=== PATIENT | female | born 1975 | race African-American/Black ===

== ENCOUNTER 2025-02-28 | Observation (INO) | payer BC, SELFPAY ==
[2025-02-28 00:06] VITALS: BP 142/90; PULSE 99; RESP 18; TEMP 36.7; O2SAT 99; BMI 25.7
[2025-02-28] MEDS: 0.9 % SODIUM CHLORIDE 1000 ml 1,000 ML IV (01:07)
[2025-02-28] MEDS: droperidoL 2.5 MG/ML inj IV (01:08)
[2025-02-28 01:18] LABS: Basophils Absolute Auto 0.05 K/uL (0.00-0.30); Basophils Percent Auto 0.5 % (0.0-3.0); Eosinophils Absolute Auto 0.01 K/uL (0.00-0.50); Eosinophils Percent Auto 0.1 % (0.0-7.0); Hemoglobin* 14.2 gm/dL (12.0-16.0); Immature Granulocytes Abs Auto 0.03 K/uL (0.00-0.30); Immature Granulocytes Pct Auto 0.3 %; Lymphocytes Absolute Auto 2.93 K/uL (0.90-2.90); Lymphocytes Percent Auto 26.7 % (20-44); Mean Corpuscular HGB Conc 34 gm/dL (32-36); Mean Corpuscular Hemoglobin 31 pg (26-34); Mean Corpuscular Volume 93 fL (80-100); Monocytes Percent Auto 6.5 % (0.0-11.0); Neutrophils Absolute Auto 7.23 K/uL (1.7-7.0); Neutrophils Percent Auto 65.9 % (42.0-72.0); Platelet Count* 393 K/uL (140-440); RDW Coefficient of Variation % 12.7 % (11.5-15.5); Red Blood Count 4.54 m/uL (4.00-5.20); White Blood Count* 10.96 K/uL (4.50-11.00)
[2025-02-28 01:20] LABS: Slide Review Reflex No
[2025-02-28 01:31] LABS: Albumin* 4.6 g/dL (3.3-5.0); Chloride* 103 mmol/L (96-114); Sodium* 135 mmol/L (135-149)
[2025-02-28 01:32] LABS: Potassium* 3.5 mmol/L (3.6-5.1)
[2025-02-28 01:34] LABS: Alanine Aminotransferase* 21 U/L (4-35); Alkaline Phosphatase* 70 U/L (40-150); Anion Gap 14 mEq/L (7-15); Aspartate Amino Transferase* 26 U/L (12-35); Bilirubin Total* 1.4 mg/dL (0.1-1.5); Blood Urea Nitrogen* 11 mg/dL (5-24); Carbon Dioxide* 18 mmol/L (20-32); Creatinine* 0.6 mg/dL (0.5-1.5); Est. Creatinine Clearance* 121.14; Estimated Glomerular Filt Rate 111 ml/min; Lipase* 87 U/L (23-300); Total Protein* 7.9 g/dL (6.0-8.3)
[2025-02-28 01:35] LABS: Calcium* 9.6 mg/dL (8.4-10.6); Glucose* 108 mg/dL (60-115)
--- OUTSIDE RECORDS SUMMARY | 2025-02-28 01:51 | XMS_ITS | Clinical Summary ---
Author Organization [employer] [facility] Address [address] [place] [id number] Care Team Providers Care Assembler Crimper Name Role Phone None Primary Care Provider Unavailabl e Allergies No known active allergies Medications acetaminophen 500 mg tabletIndication s:Abdominal pain, unspecified abdominal location,Vomitin g, unspecified vomiting type, unspecified whether nausea present Take 2 Tablets (1,000 mg) by mouth every 6 hours. Max acetaminophen dose: 4000mg in 24 hrs. 30 Tablet 02/02/20 25 11:26 AM CDT 025 Active prochlorperazine 10 mg tabletIndication s:QT prolongation,Artemio sea and vomiting, unspecified vomiting type Take 1 Tablet (10 mg) by mouth every 8 hours if needed for Nausea/Vomiting . 15 Tablet 025 Active dicyclomine 10 mg capsuleIndicatio ns:Abdominal cramping Take 1 Capsule (10 mg) by mouth every 6 hours if needed (abdominal cramping). 20 Capsule 025 Active prochlorperazine 25 mg suppositoryIndic ations:Nausea and vomiting, unspecified vomiting type Insert 1 Suppository (25 mg) rectally every 12 hours if needed for Nausea/Vomiting . 12 Suppository 025 Active rx ondansetron 4 mg orally disintegrating tablet (ED DC MED)Indications: Nausea and vomiting, unspecified vomiting type Place 1 Tablet (4 mg) on the tongue every 6 hours if needed (nausea/vomitin g). 4 Tablet 025 02/18 Discontinued( *Medication adjustment) ondansetron 4 mg disintegrating tabletIndication s:Nausea and vomiting, unspecified vomiting type Place 1 Tablet (4 mg) on the tongue every 6 hours if needed for Nausea/Vomiting . 10 Tablet 02/02/20 11:26 AM CDT 025 02/18 Discontinued( *Medication adjustment) prochlorperazine 25 mg suppositoryIndic ations:Nausea and vomiting, unspecified vomiting type Insert 1 Suppository (25 mg) rectally every 12 hours if needed for Nausea/Vomiting . 12 Suppository 025 02/18 Discontinued cephalexin 500 mg capsuleIndicatio ns:urinary tract infection Take 1 Capsule (500 mg) by mouth two times daily for 7 days. 14 Capsule 025 02/25 Active Problems No known active problems Encounters Date Type Department Care Team Description 02/22/2025 Telephone [facility] [address] [place] [address] [facility]/2025 Telephone [facility] [address] [place] [address] Letty Nam [facility] ER Follow up 02/18/2025 4:16 PM CDT - 02/18/2025 8:[address] [facility] [address] [place] [address] Malia Schuster PA Nausea and vomiting, unspecified vomiting type (Primary Dx); Abdominal cramping Discharge Disposition: Home Self Care 02/18/2025 2:20 AM CDT - 02/18/2025 5:[address] [facility] [address] [place] [address] Wilma Land MD Nausea and vomiting, unspecified vomiting type (Primary Dx); Abdominal cramping; Cystitis Discharge Disposition: Home Self Care 02/18/2025 Travel 02/16/2025 4:14 PM CDT - 02/16/2025 9:20 PM CDT Emergency [facility] [address] [place] [address] Clarisse Nye PA Nausea and vomiting, unspecified vomiting type (Primary Dx); QT prolongation Discharge Disposition: Home Self Care 02/16/2025 Telephone [facility] [address] [place] [address] Nick Sendyvamsi Chang DO 02/16/2025 Travel 02/01/2025 7:19 PM CDT - 02/01/2025 9:58 PM CDT Emergency [facility] [address] [place] [address] Ce Early PA Abdominal pain, unspecified abdominal location (Primary Dx); Nausea Discharge Disposition: Home Self Care 02/01/2025 6:23 AM CDT - 02/01/2025 11:15 AM CDT Emergency [facility] [address] [place] [address] Tomas Rosenberg MD Mittelsteadt, Diliana Stoimenova, MD Abdominal pain, unspecified abdominal location (Primary Dx); Vomiting, unspecified vomiting type, unspecified whether nausea present Discharge Disposition: Home Self Care 02/01/2025 Travel 01/31/2025 6:37 PM CDT - 01/31/2025 10:02 PM CDT [facility] [address] [place] [address] Selina Tenorio MD Nausea and vomiting, unspecified vomiting type (Primary Dx); Hypokalemia Discharge Disposition: Home Self Care 01/31/2025 5:30 PM CDT Office Visit [facility] [address] [place] [address] Meme Patel NP Emesis 01/31/2025 Travel from Last 3 Months Social History Tobacco Use Types Packs/Day Years Used Date Smoking Tobacco: Never Assessed Interpersonal Safety Answer Date Record ed Are you being hit, kicked, p ushed or yelled at (see row info)? No 02/18/2025 Interpersonal Safety Abuse 12 - 18 Not on file 02/18/2025 Interpersonal Safety Ambulatory Vulnerability No t on file 02/18/2025 Comments No Sex and Gender Information Value Date Recorded Sex Assigned at Female 02/01/2025 9:06 PM CDT Legal Sex Female 5:24 PM CDT Gender Identity Female 02/01/2025 9:06 PM CDT Sexual Orientation Straight 02/01/2025 9: 06 PM CDT Obstetrics History Last Filed Vital Signs Vital Sign Reading Time Taken Comments Blood Pressure 110/58 02/18/2025 8:38 PM CDT Pulse 87 02/18/2025 8:38 PM CDT Temperature 36.8 C (98.2 F) 02/18/2025 4:22 PM CDT Respiratory Rate 14 02/18/2025 4:22 PM CDT Oxygen Saturation 97% 02/18/2025 8:38 PM CDT Inhaled Oxygen Concentration - - Weight 80.2 kg (176 lb 12.9 oz) 02/18/2025 4:20 PM CDT Height 172.7 cm (5' 8) 02/18/2025 4:20 PM CDT Body Mass Index 26.88 02/18/2025 4:20 PM CDT Plan of Treatment Health Maintenance Due Date Last Done Comments Tdap 1988 Depression screening for age 12+ 1989 HIV for age 15-65 1992 BMI (ht and wt on same day) for age 18+ 1995 Hepatitis C screening for ag e 18-79 1995 Hepatitis B series for 19+ ( 1 of 3 - 19+ 3-dose series) 1996 Tetanus booster 1997 Pap test for age 21-65 1998 Colonoscopy through age 75 2022 Lipids for age 45-75 2022 Mammogram for age 45-75 2022 COVID-19 vaccine series ( season) 2024 Influenza Vaccine (Season Ended) 2025 Pneumococcal series for age 6-49 Aged Out No longer eligible based on patient's age to complete this topic Procedures Procedure Name Priority Date/Time Associated Diagnosis Comments AMB CONSULT TO GASTROENTEROLOGY STAT 02/22/2025 8:15 PM CDT Nausea and vomiting, unspecified vomiting type Abdominal cramping ,SERUM QUALITATIVE STAT 02/18/2025 5:10 PM CDT LIPASE STAT 02/18/2025 5:10 PM CDT HEPATIC FUNCTION PANEL STAT 5:10 PM CDT BASIC METABOLIC PANEL STAT 02/18/2025 5:10 PM CDT PLATELET ESTIMATE STAT 02/18/2025 5:0 9 PM CDT RED CELL MORPHOLOGY STAT 02/18/2025 5 :09 PM CDT MANUAL DIFFERENTIAL STAT 02/18/2025 5 :09 PM CDT CBC WITH AUTO DIFFERENTIAL STAT 02/18/2025 5:09 PM CDT CBC WITH AUTO DIFFERENTIAL STAT 02/18/2025 5:09 PM CDT BILIRUBIN DIRECT STAT 02/18/2025 3:36 AM CDT AST (SGOT) STAT 02/18/2025 3:36 AM CDT POTASSIUM STAT 02/18/2025 3:36 AM CDT CK TOTAL STAT 02/18/2025 3:36 AM CDT LIPASE STAT 02/18/2025 3:36 AM CDT RED CELL MORPHOLOGY STAT 02/18/2025 2 :55 AM CDT PLATELET ESTIMATE STAT 02/18/2025 2:5 5 AM CDT MANUAL DIFFERENTIAL STAT 02/18/2025 2 :55 AM CDT CBC WITH AUTO DIFFERENTIAL STAT 02/18/2025 2:55 AM CDT HEPATIC FUNCTION PANEL STAT 2:55 AM CDT BASIC METABOLIC PANEL STAT 02/18/2025 2:55 AM CDT CBC WITH AUTO DIFFERENTIAL STAT 02/18/2025 2:55 AM CDT EKG 12 LEAD STAT 02/18/2025 2:45 AM CDT URINE CULTURE MAYNOR 02/18/2025 2:36 AM CDT URINALYSIS MICROSCOPIC STAT 2:36 AM CDT DRUG SCREEN RAPID URINE INHOUSE STAT 02/18/2025 2:36 AM CDT UA W/ SEDIMENT EXAM REFLEXED PER CRITERIA STAT 02/18/2025 2:36 AM CDT ,SERUM QUALITATIVE STAT 02/16/2025 7:10 PM CDT HEPATIC FUNCTION PANEL STAT 7:10 PM CDT LIPASE STAT 02/16/2025 7:10 PM CDT RED CELL MORPHOLOGY STAT 02/16/2025 5 :18 PM CDT PLATELET ESTIMATE STAT 02/16/2025 5:1 8 PM CDT MANUAL DIFFERENTIAL STAT 02/16/2025 5 :18 PM CDT MAGNESIUM STAT 02/16/2025 5:18 PM CDT CBC WITH AUTO DIFFERENTIAL STAT 02/16/2025 5:18 PM CDT BASIC METABOLIC PANEL STAT 02/16/2025 5:18 PM CDT CBC WITH AUTO DIFFERENTIAL STAT 02/16/2025 5:18 PM CDT EKG 12 LEAD STAT 02/16/2025 5:12 PM CDT XR ABDOMEN 2 VIEW FLAT AND UPRIGHT OR DECUBITUS STAT 02/01/2025 8:16 PM CDT CBC WITH AUTO DIFFERENTIAL STAT 02/01/2025 7:47 PM CDT LACTATE VENOUS Today 02/01/2025 7:47 PM CDT LIPASE STAT 02/01/2025 7:47 PM CDT COMP METABOLIC PANEL STAT 02/01/2025 7:47 PM CDT CBC WITH AUTO DIFFERENTIAL STAT 02/01/2025 7:47 PM CDT LACTATE VENOUS Timed 02/01/2025 9:08 AM CDT CBC WITH AUTO DIFFERENTIAL STAT 02/01/2025 7:06 AM CDT LACTATE VENOUS Today 02/01/2025 7:06 AM CDT LIPASE STAT 02/01/2025 7:06 AM CDT COMP METABOLIC PANEL STAT 02/01/2025 7:06 AM CDT CBC WITH AUTO DIFFERENTIAL STAT 02/01/2025 7:06 AM CDT URINALYSIS MICROSCOPIC STAT 8:30 PM CDT UA W/ SEDIMENT EXAM REFLEXED PER CRITERIA STAT 01/31/2025 8:[address] ABDOMEN PELVIS W STAT 01/31/2025 8 :13 PM CDT LIPASE STAT 01/31/2025 7:17 PM CDT HEPATIC FUNCTION PANEL STAT 7:17 PM CDT BASIC METABOLIC PANEL STAT 01/31/2025 7:17 PM CDT CBC W PLT NO DIFF STAT 01/31/2025 7:1 7 PM CDT from Last 3 Months Results * ,SERUM QUALITATIVE (02/18/2025 5:10 PM CDT) Only the most recent of2 resultswithin the time period is included. ,SERU M Negative Negative 02/18/2025 5:25 PM CDT [facility] Blood BLOOD SPECIMEN / Unknown Butterfly / Unknown 02/18/2025 5:10 PM CDT 02/18/2025 5:13 PM CDT Malia TAYLOR CHEMISTRY Final R esult Performing Organization Address [facility]/ZIP Co de Phone Number [facility] [address] [place] [address] * LIPASE (02/18/2025 5:10 PM CDT) Only the most recent of6 resultswithin the time period is included. Pathologist [facility] [place] LIPASE 51.8 13.0 - 60.0 IU/L 02/18/2025 5:33 PM CDT [facility] Blood BLOOD SPECIMEN / Unknown Butterfly / Unknown 02/18/2025 5:10 PM CDT 02/18/2025 5:13 PM CDT us Malia TAYLOR CHEMISTRY Final R esult Performing Organization Address City/[facility]/ZIP Co de Phone Number [facility] [address] [place], [place] [phone] * (ABNORMAL) HEPATIC FUNCTION PANEL (02/18/2025 5:10 PM CDT) Only the most recent of4 resultswithin the time period is included. Pathologist [facility] [place] ALBUMIN 4.3 4.0 - 4.9 g/dL 02/18/2025 5:33 PM CDT [facility] PROTEIN,TOTAL 6.9 6.0 - 8.0 g/dL 02/18/2025 5:33 PM CDT [facility] BILIRUBIN,TOTAL 1.2 0.0 - 1.2 mg/dL 02/18/2025 5:33 PM CDT [facility] BILIRUBIN,DIRECT 0.5(H) 0.0 - 0.2 mg/dL 02/18/2025 5:33 PM CDT [facility] BILIRUBIN,INDIRE CT 0.7 0.2 - 0.8 mg/dL 02/18/2025 5:33 PM CDT [facility] ALK PHOSPHATASE 54 35 - 104 IU/L 02/18/2025 5:33 PM CDT [facility] ALT (SGPT) 13 10 - 35 IU/L 02/18/2025 5:33 PM T [facility] AST (SGOT) 18 10 - 35 IU/L 02/18/2025 5:33 PM T [facility] Blood BLOOD SPECIMEN / Unknown Butterfly / Unknown 02/18/2025 5:10 PM CDT 02/18/2025 5:13 PM CDT us Malia TAYLOR CHEMISTRY Final R esult [facility] [address] [place] [address] * (ABNORMAL) BASIC METABOLIC PANEL (02/18/2025 5:10 PM CDT) Only the most recent of4 resultswithin the time period is included. SODIUM 140 136 - 145 mmol/L 02/18/2025 5:33 PM T [facility] POTASSIUM 3.6 3.5 - 5.1 mmol/L 02/18/2025 5:33 PM [facility] CHLORIDE 105 98 - 107 mmol/L 02/18/2025 5:33 PM T [facility] CO2,TOTAL 17(L) 22 - 29 mmol/L 02/18/2025 5:33 PM [facility] ANION GAP 18 5 - 18 02/18/2025 5:33 PM T [facility] GLUCOSE 88 70 - 99 mg/dL 02/18/2025 5:33 PM T [facility] CALCIUM 8.8 8.8 - 10.4 mg/dL 02/18/2025 5:33 PM T [facility] Comment: Reference ranges for this test were updated on 07/12/2024 to reflect our healthy population more accurately. Reference range changes are not retroactively applied to results, but previous results using the same methodology can be interpreted in the context of the new reference range. BUN 8 6 - 20 mg/dL 02/18/2025 5:33 PM [facility] CREATININE 0.62 0.50 - 0.90 mg/dL 02/18/2025 5:33 PM [facility] BUN/CREAT RATIO 13 10 - 20 5:33 PM [facility] eGFR >90 >90 mL/min/1.7 3m2 02/18/2025 5:33 PM [facility] Comment:As of 2021, eG FR is calculated by the CKD-EPI creatinine equation without race adjustment. eGFR can be influenced by muscle mass, exercise, and diet. The reported eGFR is an estimation only and is only applicable if the renal function is stable. Blood BLOOD SPECIMEN / Unknown Butterfly / Unknown 02/18/2025 5:10 PM CDT 02/18/2025 5:13 PM CDT us Malia TAYLOR CHEMISTRY Final R esult [facility] [address] [place] [address] * CBC WITH AUTO DIFFERENTIAL (02/18/2025 5:09 PM CDT) Only the most recent of5 resultswithin the time period is included. WHITE BLOOD COUNT 10.4 4.5 - 11.0 thou/cu mm 02/18/2025 5:43 PM CDT [facility] RED BLOOD COUNT 4.24 4.00 - 5.20 mil/cu mm 02/18/2025 5:43 PM CDT [facility] HEMOGLOBIN 13.1 12.0 - 16.0 g/dL 02/18/2025 5:43 PM CDT [facility] HEMATOCRIT 39.4 33.0 - 51.0 % 02/18/2025 5:43 PM CDT [facility] MCV 93 80 - 100 fL 02/18/2025 5:43 PM CDT [facility] MCH 30.9 26.0 - 34.0 pg 02/18/2025 5:43 PM T [facility] MCHC 33.2 32.0 - 36.0 g/dL 02/18/2025 5:43 PM T [facility] RDW 12.6 11.5 - 15.5 % 02/18/2025 5:43 PM T [facility] PLATELET COUNT 333 140 - 440 thou/cu mm 02/18/2025 5:43 PM T [facility] MPV 10.2 6.5 - 11.0 fL 02/18/2025 5:43 PM [facility] Blood BLOOD SPECIMEN / Unknown Butterfly / Unknown 02/18/2025 5:09 PM CDT 02/18/2025 5:13 PM CDT us Malia TAYLOR HEMATOLOGY Final R esult [facility] [address] [place] [phone] * (ABNORMAL) RED CELL MORPHOLOGY (02/18/2025 5:09 PM CDT) Only the most recent of3 resultswithin the time period is included. ACANTHOCYTES Few 02/18/2025 5:43 PM T [facility] ECHINOCYTES Few 02/18/2025 5:43 PM [facility] RBC COMMENT Present(A) RBC morphology appears normal, RBC morphology within normal limits for newborns. 02/18/2025 5:43 PM T [facility] LARGE PLATELETS Present 5:43 PM CDT [facility] WBC REACTIVE LYMPHS Present 02/18/2025 5:43 PM CDT [facility] Blood BLOOD SPECIMEN / Unknown Butterfly / Unknown 02/18/2025 5:09 PM CDT 02/18/2025 5:13 PM CDT Malia TAYLOR HEMATOLOGY Final R esult Performing Organization Address City/[facility]/ZIP Co de Phone Number [facility] [address] [place] [address] * PLATELET ESTIMATE (02/18/2025 5:09 PM CDT) Only the most recent of3 resultswithin the time period is included. Pathologist [facility] [place] PLATELET ESTIMATE Adequate Adequate, No estimate 02/18/2025 5:43 PM CDT [facility] Blood BLOOD SPECIMEN / Unknown Butterfly / Unknown 02/18/2025 5:09 PM CDT 02/18/2025 5:13 PM CDT us Malia TAYLOR [facility]OLOGY [facility] Performing Organization Address City/[facility]/ZIP Co de Phone Number [facility] [address] [place] [address] * (ABNORMAL) MANUAL DIFFERENTIAL (02/18/2025 5:09 PM CDT) Only the most recent of3 resultswithin the time period is included. % NEUTROPHILS 58.0 % 02/18/2025 5:43 PM CDT [facility] % LYMPHOCYTES 31.0 % 02/18/2025 5:43 PM CDT [facility] % MONOCYTES 10.0 % 02/18/2025 5:43 PM CDT [facility] % EOSINOPHILS 1.0 % 02/18/2025 5:43 PM CDT [facility] % BASOPHILS 0.0 % 02/18/2025 5:43 PM CDT [facility] NEUTROPHILS ABSOLUTE 6.0 1.7 - 7.0 thou/cu mm 02/18/2025 5:43 PM CDT [facility] LYMPHOCYTES ABSOLUTE 3.2(H) 0.9 - 2.9 thou/cu mm 02/18/2025 5:43 PM CDT [facility] MONOCYTES ABSOLUTE 1.0(H) <0.9 thou/cu mm 02/18/2025 5:43 PM CDT [facility] EOSINOPHILS ABSOLUTE 0.1 <0.5 thou/cu mm 02/18/2025 5:43 PM CDT [facility] BASOPHILS ABSOLUTE 0.0 <0.3 thou/cu mm 02/18/2025 5:43 PM CDT [facility] Blood BLOOD SPECIMEN / Unknown Butterfly / Unknown 02/18/2025 5:09 PM CDT 02/18/2025 5:13 PM CDT us Malia TAYLOR HEMATOLOGY Final R esult Performing Organization Address City/[facility]/ZIP Co de Phone Number [facility] [address] [place], [place] [phone] * (ABNORMAL) POTASSIUM (02/18/2025 3:36 AM CDT) Pathologist [facility] [place] POTASSIUM 3.4(L) 3.5 - 5.1 mmol/L 02/18/2025 3:58 AM CDT [facility] Blood BLOOD SPECIMEN / Unknown Butterfly / Unknown 02/18/2025 3:36 AM CDT 02/18/2025 3:38 AM CDT us Wilma Land MD CHEMISTRY Natalie l Result Performing Organization Address [facility]/ZIP Co de Phone Number [facility] [address] [place], [place] [phone] * AST (SGOT) (02/18/2025 3:36 AM CDT) AST (SGOT) 21 10 - 35 IU/L 02/18/2025 3:58 AM CDT [facility] Blood BLOOD SPECIMEN / Unknown Butterfly / Unknown 02/18/2025 3:36 AM CDT 02/18/2025 3:38 AM CDT Wilma Land MD CHEMISTRY Natalie l Result Performing Organization Address [facility]/ZIP Co de Phone Number [facility] [address] [place] [address] * CK TOTAL (02/18/2025 3:36 AM CDT) [facility] CK,TOTAL 90 26 - 192 IU/L 02/18/2025 3:58 AM CDT [facility] Blood BLOOD SPECIMEN / Unknown Butterfly / Unknown 02/18/2025 3:36 AM CDT 02/18/2025 3:38 AM CDT Result [facility] Wilma Land MD CHEMISTRY Natalie l Result Performing Organization Address [facility] Co de Phone Number [facility] [address] [place] [phone] * (ABNORMAL) BILIRUBIN DIRECT (02/18/2025 3:36 AM CDT) [facility] BILIRUBIN,DIRE CT 0.5(H) 0.0 - 0.2 mg/dL 02/18/2025 3:58 AM CDT [facility] Blood BLOOD SPECIMEN / Unknown Butterfly / Unknown 02/18/2025 3:36 AM CDT 02/18/2025 3:38 AM CDT Result [facility] Wilma Land MD CHEMISTRY Natalie l Result Performing Organization Address [facility] Co de Phone Number [facility] [address] [place] [phone] * EKG 12 LEAD (02/18/2025 2:45 AM CDT) Only the most recent of2 resultswithin the time period is included. Interpretation Normal sinus rhythm with sinus arrhythmia Normal ECG QTc: 47/ms BEYOND NOW Ventricular Rate 71 BPM BEYOND NOW Atrial Rate 71 BPM BEYOND NOW P-R Interval 130 ms BEYOND NOW QRS Duration 76 ms BEYOND NOW QT 434 ms BEYOND NOW QTc 471 ms BEYOND NOW P Murdo 58 degrees BEYOND NOW R Murdo 63 degrees BEYOND NOW T Murdo 55 degrees BEYOND NOW 02/18/2025 2:45 AM CDT 02/18/2025 3:41 AM CDT us Wilma Land MD EKG ORD Natalie l Result [place]OND NOW [place], [place] * (ABNORMAL) DRUG SCREEN RAPID URINE INHOUSE (02/18/2025 2:36 AM CDT) THC METABOLITES,ROCK L Non-negative , consider further testing if indicated(A) Not Detected 02/18/2025 3:19 AM [facility] PCP,QUAL Not Detected Not Detected 02/18/2025 3:19 AM [facility] COCAINE,QUAL Not Detected Not Detected 02/18/2025 3:19 AM [facility] METHAMPHETAMINE , QUALITATIVE Not Detected Not Detected 02/18/2025 3:19 AM [facility] OPIATES,QUAL Not Detected Not Detected 02/18/2025 3:19 AM [facility] AMPHETAMINE, QUALITATIVE Not Detected Not Detected 02/18/2025 3:19 AM [facility] BENZODIAZEPINES ,QUAL Not Detected Not Detected 02/18/2025 3:19 AM [facility] TRICYCLICS,QUAL Not Detected Not Detected 02/18/2025 3:19 AM [facility] METHADONE, QUALITATIVE Not Detected Not Detected 02/18/2025 3:19 AM [facility] BARBITURATES,QU AL Not Detected Not Detected 02/18/2025 3:19 AM [facility] OXYCODONE, QUALITATIVE Not Detected Not Detected 02/18/2025 3:19 AM [facility] BUPRENORPHINE, QUALITATIVE Not Detected Not Detected 02/18/2025 3:19 AM CDT [facility] Urine URINE SPECIMEN / Unknown Non-Blood / Unknown 02/18/2025 2:36 AM CDT 02/18/2025 2:57 AM CDT Narrative [facility] - 02/18/2025 3:19 AM CDT Please Note: This is a screening test only, all results are unconfirmed and should be used for medical purposes only. Unconfirmed results must not be used for non-medical purposes (e.g., employment testing, legal testing). Suggest analyte specific confirmation for all non-negative results. Specimens will be held for 24 hours if additional testing is needed. The following threshold concentrations are used for this analysis: Drug Screening Threshold Buprenorphine 10 ng/mL PCP 25 ng/mL THC Metabolites 50 ng/mL *Opiates 100 ng/mL Oxycodone 100 ng/mL Cocaine 150 ng/mL Benzodiazepines 150 ng/mL Methadone 200 ng/mL Barbiturates 200 ng/mL Tricyclic Antidepressants 300 ng/mL Amphetamines 500 ng/mL Methamphetamines 500 ng/mL *Includes related compounds: Codeine 50 ng/mL Heroin 100 ng/mL Morphine 100 ng/mL Hydrocodone 400 ng/mL Hydromorphone 800 ng/mL Venlafaxine (Effexor) is a known cross reactant in the PCP assay. If clinically indicated, order PCP confirmation. Wilma Land MD URINE Natalie l Result [facility] [address] [place] [phone] * (ABNORMAL) URINALYSIS MICROSCOPIC (02/18/2025 2:36 AM CDT) Only the most recent of2 resultswithin the time period is included. RBC 0-2 0-2, None Seen /HPF 02/18/2025 3:13 AM CDT [facility] WBC 0-2 0-2, 3-5, None Seen /HPF 02/18/2025 3:13 AM T [facility] BACTERIA Many(A) None Seen, Rare, Few Bacteria/H PF 02/18/2025 3:13 AM CDT [facility] EPITHELIAL CELLS Many(A) None Seen, Few Epi/HPF 02/18/2025 3:13 AM CDT [facility] Mucus Present 02/18/2025 3:13 AM CDT [facility] Urine URINE SPECIMEN / Unknown Non-Blood / Unknown 02/18/2025 2:36 AM CDT 02/18/2025 2:57 AM CDT Wilma Land MD URINE Natalie l Result Performing Organization Address City/[facility]/ZIP Co de Phone Number [facility] [address] [place] [phone] * URINE CULTURE (02/18/2025 2:36 AM CDT) CULTURE 10-50,000 CFU/mL of multiple organisms, probable contaminants 02/19/2025 3:01 PM CDT [facility] Urine URINE SPECIMEN / Unknown Non-Blood / Unknown 02/18/2025 2:36 AM CDT 02/18/2025 2:57 AM CDT Wilma Land MD MICROBIOLOGY Natalie l Result Performing Organization Address City/[facility]/ZIP Co de Phone Number [facility] [address] [place] [address], [place] * (ABNORMAL) UA W/ SEDIMENT EXAM REFLEXED PER CRITERIA (02/18/2025 2:36 AM CDT) Only the most recent of2 resultswithin the time period is included. COLOR Moca(A) Yellow Color 02/18/2025 3:08 AM CDT [facility] CLARITY Clear Clear Clarity 02/18/2025 3:08 AM CDT [facility] SPECIFIC GRAVITY,URINE >=1.030(A) 1.010, 1.015, 1.020, 1.025 02/18/2025 3:08 AM CDT [facility] PH,URINE 5.5 6.0, 7.0, 8.0, 5.5, 6.5, 7.5, 8.5 02/18/2025 3:08 AM [facility] UROBILINOGEN,QU ALITATIVE Normal Normal EU/dl 02/18/2025 3:08 AM [facility] PROTEIN, URINE 30(A) Negative mg/dL 02/18/2025 3:08 AM [facility] GLUCOSE, URINE Negative Negative mg/dL 02/18/2025 3:08 AM [facility] [facility] KETONES,URINE >=80(A) Negative mg/dL 02/18/2025 3:08 AM [facility] BILIRUBIN,URINE Abnormal(A) Negative 02/19/20 3:08 AM [facility] Comment:A variety of metabol ites and/or medications may result in a positive bilirubin result. Clinical correlation is recommended. OCCULT BLOOD,URINE Trace(A) Negative 02/18/2025 3:08 AM [facility] NITRITE Positive(A) Negative 02/18/2025 3:08 AM [facility] LEUKOCYTE ESTERASE Negative Negative 02/18/2025 3:08 AM [facility] Urine URINE SPECIMEN / Unknown Non-Blood / Unknown 02/18/2025 2:36 AM CDT 02/18/2025 2:57 AM CDT Wilma Land MD URINE Natalie l Result [facility] [address] [place] [address] * MAGNESIUM (02/16/2025 5:18 PM CDT) MAGNESIUM 1.9 1.6 - 2.6 mg/dL 02/16/2025 5:50 PM CDT [facility] Blood BLOOD SPECIMEN / Unknown IV Start / Unknown 02/16/2025 5:18 PM CDT 02/16/2025 5:26 PM CDT Clarisse [facility] CHEMISTRY Final Result [facility] [address] [place] [address] * XR ABDOMEN 2 VIEW FLAT AND UPRIGHT OR DECUBITUS (02/01/2025 8:16 PM CDT) Anatomical Region Laterality Modality Abdomen Digital Radiogra phy 02/01/2025 8:38 PM CDT Impressions 02/01/2025 8:38 PM CDT 1. Unremarkable appearance of the visualized abdomen. Dictated by: Ant Lepe MD @ 02/01/2025 20:38:35 (Electronically Signed) Narrative 02/01/2025 8:38 PM CDT For Patients: As a result of the Cures Act, medical imaging exams and procedure reports are released immediately into your electronic medical record. You may view this report before your referring provider. If you have questions, please contact your health care provider. INDICATION: Abnormal bowel function TECHNIQUE: Abdomen Pelvis radiograph 2 views COMPARISON: None FINDINGS: The sensitivity and specificity of the exam are moderately limited by the patient`s body habitus. Bowel: The bowel gas pattern is normal without evidence of bowel obstruction. Soft tissue: No evidence of pneumoperitoneum present. No suspicious calcifications noted. Bone: Unremarkable for age. Procedure Note Ant Lepe MD - 02/01/2025 For Patients: As a result of the Cures Act, medical imagingexams and procedure reports are released immediately into your electronicmedical record. You may view this report before your referring provider.If you have questions, please contact your health care provider. INDICATION: Abnormal bowel function TECHNIQUE: Abdomen Pelvis radiograph 2 views COMPARISON: None FINDINGS: The sensitivity and specificity of the exam are moderatelylimited by the patient`s body habitus. Bowel: The bowel gas pattern is normal without evidence of bowelobstruction. Soft tissue: No evidence of pneumoperitoneum present. No suspiciouscalcifications noted. Bone: Unremarkable for age. IMPRESSION: 1. Unremarkable appearance of the visualized abdomen. Dictated by: Ant Lepe MD @ 02/01/2025 20:38:35 (Electronically Signed) [facility] Final R esult * LACTATE VENOUS (02/01/2025 7:47 PM CDT) Only the most recent of3 resultswithin the time period is included. LACTATE,VENOUS 1.5 0.5 - 2.0 mmol/L 02/01/2025 8:13 PM CDT [facility] Blood BLOOD SPECIMEN / Unknown Butterfly / Unknown 02/01/2025 7:47 PM CDT 02/01/2025 7:50 PM CDT Ce [facility] CHEMISTRY Final R esult [facility] [address] [place] [address] * (ABNORMAL) COMP METABOLIC PANEL (02/01/2025 7:47 PM CDT) Only the most recent of2 resultswithin the time period is included. SODIUM 136 136 - 145 mmol/L 02/01/2025 8:13 PM [facility] POTASSIUM 3.1(L) 3.5 - 5.1 mmol/L 02/01/2025 8:13 PM [facility] CHLORIDE 101 98 - 107 mmol/L 02/01/2025 8:13 PM [facility] CO2,TOTAL 18(L) 22 - 29 mmol/L 02/01/2025 8:13 PM [facility] ANION GAP 17 5 - 18 02/01/2025 8:13 PM [facility] GLUCOSE 90 70 - 99 mg/dL 02/01/2025 8:13 PM [facility] CALCIUM 8.8 8.8 - 10.4 mg/dL 02/01/2025 8:13 PM [facility] Comment: Reference ranges for this test were updated on 07/12/2024 to reflect our healthy population more accurately. Reference range changes are not retroactively applied to results, but previous results using the same methodology can be interpreted in the context of the new reference range. BUN 5(L) 6 - 20 mg/dL 02/01/2025 8:13 PM [facility] CREATININE 0.66 0.50 - 0.90 mg/dL 02/01/2025 8:13 PM [facility] BUN/CREAT RATIO 8(L) 10 - 20 8:13 PM [facility] eGFR >90 >90 mL/min/1. 73m2 02/01/2025 8:13 PM [facility] Comment:As of 2021, eG FR is calculated by the CKD-EPI creatinine equation without race adjustment. eGFR can be influenced by muscle mass, exercise, and diet. The reported eGFR is an estimation only and is only applicable if the renal function is stable. ALBUMIN 4.5 4.0 - 4.9 g/dL 02/01/2025 8:13 PM [facility] PROTEIN,TOTAL 6.8 6.0 - 8.0 g/dL 02/01/2025 8:13 PM [facility] BILIRUBIN,TOTAL 0.9 0.0 - 1.2 mg/dL 02/01/2025 8:13 PM [facility] ALK PHOSPHATASE 53 35 - 104 IU/L 02/01/2025 8:13 PM [facility] ALT (SGPT) 9(L) 10 - 35 IU/L 02/01/2025 8:13 PM [facility] AST (SGOT) 18 10 - 35 IU/L 02/01/2025 8:13 PM [facility] Blood BLOOD SPECIMEN / Unknown Butterfly / Unknown 02/01/2025 7:47 PM CDT 02/01/2025 7:50 PM T us Ce [facility] CHEMISTRY Final R esult [facility] [address] [place] [address] * CT ABDOMEN PELVIS W (01/31/2025 8:13 PM CDT) Anatomical Region Laterality Modality Abdomen, Pelvis, AORTA, LIVER, SPLEEN Computed Tomography 01/31/2025 9:33 PM CDT Impressions 01/31/2025 9:33 PM CDT 1. Questionable mild wall thickening of segments of transverse colon which may be exaggerated by underdistention, however clinical correlation recommended to exclude mild colitis. 2. Ground-glass opacity of the right middle lobe likely reflecting infectious/inflammatory process. Further characterization with dedicated CT chest can be considered as clinically warranted. 3. Trace fluid within the distal esophagus. Correlate for reflux. 4. Small volume pelvic ascites, nonspecific. Please note that all CT scans at this facility use dose modulation, iterative reconstruction, and/or weight-based dosing when appropriate to reduce radiation dose to as low as reasonably achievable. Dictated by Jean-Claude Hernandez MD @ 01/31/2025 9:33:39 PM (Electronically Signed) Narrative 01/31/2025 9:33 PM CDT For Patients: As a result of the Cures Act, medical imaging exams and procedure reports are released immediately into your electronic medical record. You may view this report before your referring provider. If you have questions, please contact your health care provider. INDICATION: Left lower quadrant abdominal pain. TECHNIQUE: CT abdomen and pelvis acquired with 100 cc Omnipaque 300 IV contrast. COMPARISON: None. FINDINGS: Lower chest: Ground-glass opacity within the right middle lobe measuring 10 mm (series 3, images 7-8). Liver: Unremarkable. Gallbladder and bile ducts: Unremarkable. Pancreas: Unremarkable. Spleen: Unremarkable. Adrenal glands: Unremarkable. Kidneys: Symmetric renal enhancement. No hydronephrosis or hydroureter. No urinary calculi. GI tract: Small amount of fluid noted within the distal esophagus. No bowel obstruction. Questionable mild wall thickening of segments of transverse colon. Normal appendix. Vasculature: Grossly patent vasculature. No abdominal aortic aneurysm. Scattered atherosclerotic vascular calcifications. Lymph nodes: Mildly prominent retroperitoneal lymph nodes do not meet size criteria for enlargement. Peritoneum/Abdominal Wall: Small volume pelvic ascites. No pneumoperitoneum. No acute abdominal wall abnormality. Pelvis: Normal bladder. Probable left ovarian corpus luteum measuring 1.1 cm. Bones: No acute abnormality. Procedure Note Jean-Claude Hernandez MD - 01/31/2025 For Patients: As a result of the 21st Century Cures Act, medical imagingexams and procedure reports are released immediately into your electronicmedical record. You may view this report before your referring provider.If you have questions, please contact your health care provider. INDICATION: Left lower quadrant abdominal pain. TECHNIQUE: CT abdomen and pelvis acquired with 100 cc Omnipaque 300 IV contrast. COMPARISON: None. FINDINGS: Lower chest: Ground-glass opacity within the right middle lobe mm (series 3, images 7-8). Liver: Unremarkable. Gallbladder and bile ducts: Unremarkable. Pancreas: Unremarkable. Spleen: Unremarkable. Adrenal glands: Unremarkable. Kidneys: Symmetric renal enhancement. No hydronephrosis or hydroureter. Nourinary calculi. GI tract: Small amount of fluid noted within the distal esophagus. Nobowel obstruction. Questionable mild wall thickening of segments oftransverse colon. Normal appendix. Vasculature: Grossly patent vasculature. No abdominal aortic aneurysm.Scattered atherosclerotic vascular calcifications. Lymph nodes: Mildly prominent retroperitoneal lymph nodes do not meet sizecriteria for enlargement. Peritoneum/Abdominal Wall: Small volume pelvic ascites. Nopneumoperitoneum. No acute abdominal wall abnormality. Pelvis: Normal bladder. Probable left ovarian corpus luteum measuring 1.1cm. Bones: No acute abnormality. IMPRESSION: 1. Questionable mild wall thickening of segments of transverse colon whichmay be exaggerated by underdistention, however clinical correlationrecommended to exclude mild colitis. 2. Ground-glass opacity of the right middle lobe likely reflectinginfectious/inflammatory process. Further characterization with dedicatedCT chest can be considered as clinically warranted. 3. Trace fluid within the distal esophagus. Correlate for reflux. 4. Small volume pelvic ascites, nonspecific. Please note that all CT scans at this facility use dose modulation,iterative reconstruction, and/or weight-based dosing when appropriate toreduce radiation dose to as low as reasonably achievable. Dictated by Jean-Claude Hernandez MD @ 01/31/2025 9:33:39 PM (Electronically Signed) us Selina Tenorio MD CT Final Result * CBC W PLT NO DIFF (01/31/2025 7:17 PM CDT) WHITE BLOOD COUNT 9.1 4.5 - 11.0 thou/cu mm 01/31/2025 7:26 PM [facility] RED BLOOD COUNT 4.30 4.00 - 5.20 mil/cu mm 01/31/2025 7:26 PM [facility] HEMOGLOBIN 13.7 12.0 - 16.0 g/dL 01/31/2025 7:26 PM [facility] HEMATOCRIT 40.4 33.0 - 51.0 % 01/31/2025 7:26 PM [facility] MCV 94 80 - 100 fL 01/31/2025 7:26 PM [facility] MCH 31.9 26.0 - 34.0 pg 01/31/2025 7:26 PM [facility] MCHC 33.9 32.0 - 36.0 g/dL 01/31/2025 7:26 PM [facility] RDW 12.8 11.5 - 15.5 % 01/31/2025 7:26 PM [facility] PLATELET COUNT 253 140 - 440 thou/cu mm 01/31/2025 7:26 PM [facility] MPV 10.6 6.5 - 11.0 fL 01/31/2025 7:26 PM [facility] Blood BLOOD SPECIMEN / Unknown Venipuncture / Unknown 01/31/2025 7:17 PM CDT 01/31/2025 7:20 PM T Selina Tenorio MD HEMATOLOGY Final Result [facility] [address] [place] [address] from Last 3 Months Insurance [id number] [place] [address] [employer] Teams [employer] Relationship Specialty Start Date End Date None . PCP - General 01/31/25
[2025-02-28] MEDS: KETOROLAC 15 MG/ML inj IVP (02:10)
[2025-02-28] MEDS: diphenhydrAMINE 50 MG/ML inj 12.5 MG IVP (02:11)
[2025-02-28] MEDS: METOCLOPRAMIDE HCL 5 MG/ML INJ 10 MG IVP (02:11)
--- NOTE | 2025-02-28 02:28 | ED_ITS ---
HPI - General Adult General Date Seen: 02/28/25 Chief complaint: Nausea/Vomiting Stated complaint: throwing up 3 days Time Seen by Provider: 02/28/25 00:02 History of Present Illness HPI narrative: 49-year-old female presenting to the ER christi for evaluation of abdominal pain, nausea, and intractable vomiting. She is originally from [place]. 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 She moved here in December and actually her job and on March 07. She is generally healthy. No history of diabetes, high blood pressure come or other long-term health conditions. She has a history of uterine fibroids and has had a hysterectomy. Her only other surgical history includes . She is not on any regular outpatient medications. She reports that she has had 3 (now for) episodes like this that have all started since she moved to [place] in December. She gets bouts where she has abdominal pain and intractable nausea and vomiting. She has been seen in the ER a couple times in [place] without a clear diagnosis. She has had labs and CT scan. She has been referred to [facility] and actually is scheduled to have endoscopy and colonoscopy which are to be performed in 3 days ( on March 02). She has had another bout of intractable nausea and pain that began 2 days ago on Thursday. She has been using prescription Zofran but she feels that makes her nausea worse and prescription Compazine suppositories which are not helpful. She is not having any bowel movements. No diarrhea. No fever. She is having generalized abdominal pain. Urination has been normal. She does not get menstrual cycle because she has had hysterectomy. She does have ovaries. She had been told by the doctors in the ER that her bouts of pain related to dr inking too much to so she stop drinking. Subsequently she was told that her bouts pain were related to marijuana in takes. She says she used to smoke marijuana regularly but she stopped about a month ago. Nurses were able to provide me with some of her previous ER records. It looks like she had a telehealth consult with [facility] on 02/22. According to that note, she reports that she gets episodes of nausea frequently and sometimes needs ER visits. According to the [facility] note she does use vape, she quit smoking. She did report marijuana use 1 g per week for about 10 years. Previous heavy alcohol use but cut back significantly. According to the [facility] consult note they had suspicion that her symptoms could be related to constipation but recommended that they do endoscopically evaluation to look for other anatomic causes of her symptoms. They recommended that the patient wean her marijuana use. Per [facility] care link she was in the [place] ER on 01/31/2025 for nausea and vomiting with 3 days of left-sided abdominal pain. CT scan showed IMPRESSION: 1. Questionable mild wall thickening of segments of transverse colon which may be exaggerated by underdistention, however clinical correlation recommended to exclude mild colitis. 2. Ground-glass opacity of the right middle lobe likely reflecting infectious/inflammatory process. Further characterization with dedicated CT chest can be considered as clinically warranted. 3. Trace fluid within the distal esophagus. Correlate for reflux. 4. Small volume pelvic ascites, nonspecific. She was treated supportively. Discharged. Seen again in the ER on 02/01. Treated with fluids, morphine, Zofran. Discharge. Had a return visit to the ER on 02/01 for recurring symptoms. Treated with Zofran, Reglan, Benadryl, Dilaudid. X-ray of her abdomen was ?unremarkable. ? 02/16-ER visit for vomiting/lightheadedness. Labs showed sodium 139, potassium 4.4, bicarb low at 18, anion gap 16, calcium 9.7, glucose 132, BUN 10,, creatinine 0.63, lipase normal at 21, total bili normal at 0.6, alk-phos 54, ALT 13, AST 21, test negative, white blood cell count 10.6, hemoglobin 13.8, platelet count 340, magnesium 1.9. She was treated with 2 doses of droperidol, 2 L of fluid, and IV Compazine. EKG showed QT prolongation. Her provider recommended against further Zofran. 02/18, return visit to the [place] ER for recurring symptoms. Workup included drug screen that was negative, CBC with a white count of 10.7, urinalysis showing 0-2 WBC, 0-2 RBC, but many bacteria and many squamous epithelial cells. Positive nitrite. Lipase was normal. LFTs normal. EKG showed normal QT intervals with a QTC of 434 and a QTC of 471. Was treated with IV Rocephin for possible UTI. Treated with antiemetics and was able to discharge Had a repeat visit again on 02/18 Related Data Home Medications ?Medication ?Instructions ?Recorded ?Confirmed No Known Home Medications 02/28/2502/06 Allergies Allergy/AdvReac Type Severity Reaction Status Date / Time No Known Drug Allergies Allergy Verified 02/28/25 00:10 [facility] Social History Smoking Status: Current every day smoker Do you use any of these nicotine containing products: E-Cigarettes Second hand tobacco smoke exposure: No How often do you have a drink containing alcohol: never AUDIT-C Alcohol total score: 0 Non-prescribed substance use: marijuana (any form) Exam Narrative: Exam Narrative: Constitutional: Appears well-developed and well-nourished. Alert. Conversant but uncomfortable appearing and nauseous and holding MN emesis bag. She is not actively vomiting during my initial evaluation. HENT: Head: Atraumatic. Nose: Nose normal. Mouth/Throat: Oral mucosa is clear. Mucous membranes are dry but not desiccated or cracked no trismus. Eyes: Conjunctivae normal. EOM normal. Pupils equal, round, and reactive to light. No scleral icterus. Neck: Normal range of motion. Neck supple. No tracheal deviation present. Cardiovascular: Normal rate, regular rhythm. No gallop. No friction rub. No murmur heard. Symmetric radial artery pulses Pulmonary/Chest: Effort normal. No stridor. No respiratory distress. No wheezes. No rales. No rhonchi . No tenderness. Abdominal: Soft. Bowel sounds normal. No distension. No mass. Periumbilical and suprapubic tenderness. No rebound. No guarding. No right upper quadrant tenderness or Adames sign. No CVA tenderness. Musculoskeletal: RUE: Normal range of motion. No tenderness. No deformity LUE: Normal range of motion. No tenderness. No deformity RLE: Normal range of motion. No edema. No tenderness. No deformity LLE: Normal range of motion. No edema. No tenderness. No deformity Zainab Pisano Neurological: Alert and oriented to person, place, and time. Normal strength. CN II-VII intact. No sensory deficit. GCS eye subscore is 4. GCS verbal subscore is 5. GCS motor subscore is 6. Normal coordination Skin: Skin is warm and dry. No rash noted. No pallor. Normal capillary refill. Psychiatric: Normal mood. Normal affect. Const: Vital Signs, click to edit/add: Vital Signs - 24 hr 02/28/25 00:06 02/28/25 03:28 Temperature 98.1 F Pulse Rate [Pulse Oximeter] 99 86 Respiratory Rate 18 16 Blood Pressure [Ri ght Upper Arm] 142/90 H 148/89 H Pulse Oximetry 99 98 Oxygen Delivery Me thod Room Air Room Air Course Course ED Course: Recheck-nausea somewhat improved. Still nauseous but no longer vomiting. Would like some medication for pain. Would like to drive herself home so will try to avoid opiates. Toradol ordered. I was able to review her old records from [place]. See HPI. Recheck-0 300. Patient drowsy after nausea meds but no longer nauseous. Has been provided with crackers and water for p.o. challenge by nursing. She has had a few sips of water and a few bites of crackers is not currently feeling the need to throw up. Repeat exam: Still no right upper quadrant tenderness or Adames sign. No epigastric tenderness. Is mildly tender in the left mid abdomen and in the suprapubic region. Denies any current UTI symptoms. Vital Signs Vital signs: Initial Vital Signs Temperature 98.1 F 02/28/25 00:06 Temperature Source Temporal Artery Scan 02/28/25 00:06 Pulse Rate 99 02/28/25 00:06 Pulse Rhythm Regular 02/28/25 00:06 Pulse Strength 3+ Normal 02/28/25 00:06 Respiratory Rate 18 02/28/25 00:06 Blood Pressure 142/90 H 02/28/25 00:06 Blood Pressure Mean 107 H 02/28/25 00:06 Blood Pressure Position Sitting 02/28/25 00:06 Pulse Oximetry 99 02/28/25 00:06 Oxygen Delivery Method Room Air 02/28/25 00:06 Vital Signs Temperature 98.1 F 02/28/25 00:06 Pulse Rate 99 02/28/25 00:06 Respiratory Rate 18 02/28/25 00:06 Blood Pressure 142/90 H 02/28/25 00:06 Pulse Oximetry 99 02/28/25 00:06 Oxygen Delivery Method Room Air 02/28/25 00:06 Temperature 98.1 F 02/28/25 00:06 Pulse Rate 86 02/28/25 03:28 Respiratory Rate 16 02/28/25 03:28 Blood Pressure 148/89 H 02/28/25 03:28 Pulse Oximetry 98 02/28/25 03:28 Oxygen Delivery Method Room Air 02/28/25 03:28 Medications Administered Medications: Discontinued Medications Generic Name Dose Route Start Last Admin Trade Name Melvinq PRN Reason Stop Dose Admin Diphenhydramine HCl 12.5 mg 02/28/25 01:43 02/28/25 02:11 Diphenhydramine 50 Mg/Ml Inj IVP 02/28/25 01:44 12.5 mg ONCE ONE Administration Droperidol 2.5 mg 02/28/25 00:39 02/28/25 01:08 Droperidol 2.5 Mg/Ml Inj IV 02/28/25 00:40 2.5 mg ONCE ONE Administration Sodium Chloride 1,000 mls @ 1,000 mls/hr 02/28/25 00:45 02/28/25 02:04 0.9 % Sodium Chloride 1000 Ml IV 02/28/25 01:44 Infused .Q1H JUVE Infusion Ketorolac Tromethamine 15 mg 02/28/25 01:43 02/28/25 02:10 Ketorolac 15 Mg/Ml Inj IVP 02/28/25 01:44 15 mg ONCE ONE Administration Metoclopramide HCl 10 mg 02/28/25 01:43 02/28/25 02:11 Metoclopramide Hcl 5 Mg/Ml Inj IVP 02/28/25 01:44 10 mg ONCE ONE Administration Medical Decision Making MDM Narrative Medical decision making narrative: Presented to the Emergency Department with 2-1/2 day history repetitive nonbloody emesis, no bowel movement, and lower/left-sided abdominal pain. The differential diagnosis of abdominal pain includes: Appendicitis, Bowel Obstruction, Ulcer, Ischemia, Cholecystitis, Diverticulitis, Pancreatitis, UTI, kidney stone, Enteritis/Colitis, amongst many other etiologies. Laboratory testing does not reveal a cause for the patient's pain. Urinalysis is normal. She does have a pattern of recurrent episodes of pains similar to the pain she is having tonight. She says multiple recent visits to the emergency department in [place] without a clear diagnosis. She actually has been set up to see [facility] and is scheduled to have upper endoscopy as well as colonoscopy in 2 days, on . Consider possible advanced imaging. She had a head CT scan for an episode of these symptoms on January 31 with equivocal findings of potential colitis versus decompression of her bowel. On my exam she does have mild left-sided tenderness and suprapubic tenderness but no peritoneal findings. At this point I feel that the risk of radiation exposure from repeat CT would outweigh the likely benefit. She is not having any right upper quadrant tenderness or pain to raise suspicion for cholecystitis or biliary colic. LFTs and lipase are normal tonight. At this point I do not think she needs an emergent gallbladder ultrasound. Differential would include cyclic vomiting syndrome as well as cannabis hyperemesis syndrome. She had apparently does have fairly long history of marijuana use but stopped smoking marijuana several weeks ago after her bouts of pain started. During a recent visit to [facility] she actually had a drug screen that was negative for THC. We did obtain EKG tonight to check on her QT interval and is normal. EKG also shows no signs of ischemia. Unfortunately, despite multiple rounds of IV antiemetic, IV fluids, and Toradol for pain, were not able to get adequate control of her nausea. She is able to take about 2 oz of water and a small bite of crackers without vomiting but is not able to drink enough liquids to maintain hydration at home. Discussed with the overnight hospitalist, through the [facility], [place], Dr. Dodd, who will admit. Lab Data Labs: Lab Results 02/28/25 02/28/25 Range/Units 01:10 03:20 WBC 10.96 (4.50-11.00) K/uL RBC 4.54 (4.00-5.20) m/uL Hgb 14.2 (12.0-16.0) gm/dL Hct 42.0 (33.0-51.0) % MCV 93 (80-100) fL MCH 31 (26-34) pg MCHC 34 (32-36) gm/dL RDW Coeff of Nenita 12.7 (11.5-15.5) % Plt Count 393 (140-440) K/uL Neut % (Auto) 65.9 (42.0-72.0) % Lymph % (Auto) 26.7 (20-44) % [place] % (Auto) 6.5 (0.0-11.0) % Eos % (Auto) 0.1 (0.0-7.0) % Baso % (Auto) 0.5 (0.0-3.0) % Neut # (Auto) 7.23 H (1.7-7.0) K/uL Lymph # (Auto) 2.93 H (0.90-2.90) K/uL [place] # (Auto) 0.70 (0.00-0.90) K/UL Eos # (Auto) 0.01 (0.00-0.50) K/uL Baso # (Auto) 0.05 (0.00-0.30) K/uL Abs Immat Gran (auto) 0.03 (0.00-0.30) K/uL Imm/Tot Granulo (auto) 0.3 % Sodium 135 (135-149) mmol/L Potassium 3.5 L (3.6-5.1) mmol/L Chloride 103 (96-114) mmol/L Carbon Dioxide 18 L (20-32) mmol/L Anion Gap 14 (7-15) mEq/L BUN 11 (5-24) mg/dL Creatinine 0.6 (0.5-1.5) mg/dL Estimated Creat Clear 121.14 Estimated GFR 111 ml/min Glucose 108 (60-115) mg/dL Calcium 9.6 (8.4-10.6) mg/dL Total Bilirubin 1.4 (0.1-1.5) mg/dL AST 26 (12-35) U/L ALT 21 (4-35) U/L Alkaline Phosphatase 70 (40-150) U/L Total Protein 7.9 (6.0-8.3) g/dL Albumin 4.6 (3.3-5.0) g/dL Lipase 87 (23-300) U/L Urine Color Yellow (Yellow) Urine Appearance Cloudy A (Clear) Urine pH 6.0 (5.0-8.5) Ur Specific [place] 1.025 (1.000-1.030) Urine Protein 1+ A (Negative) Urine Glucose (UA) Negative (Negative) Urine Ketones 4+ A (Negative) Urine Blood Negative (Negative) Urine Nitrite Negative (Negative) Urine Bilirubin 1+ A (Negative) Urine Urobilinogen 4.0 A (0.2-1.0) Ur Leukocyte Esterase Negative (Negative) Urine RBC 0-2 (0-2) Urine WBC 0-2 (0-5) Ur Squamous Epith Cells Few (None-Few) Urine Bacteria Few A (None) Urine Mucus Moderate A (None) Urine HCG, Qual Cancelled ECG Data Attestation: I personally reviewed and interpreted this ECG as follows: Interpretation: Normal sinus rhythm Rate: 69 OH: 114 QRS axis: Normal axis ST segment/T wave: No pathologic Q-waves. No ST segment elevation or depression. QTc: 458. Normal Discharge Plan Discharge Prescriptions: No Action No Known Home Medications Follow Up/Referrals: Provider,Not a Local [Primary Care Provider, Family Practice]
[2025-02-28 03:28] VITALS: BP 148/89; PULSE 86; RESP 16; O2SAT 98
[2025-02-28 03:31] LABS: Appearance Urine Cloudy (Clear); Bilirubin Urine 1+ (Negative); Blood Urine Negative (Negative); Color Urine Yellow (Yellow); Glucose Urine Negative (Negative); Ketones Urine 4+ (Negative); Leukocyte Esterase Urine Negative (Negative); Nitrite Urine Negative (Negative); Protein Urine 1+ (Negative); Specific Gravity Urine 1.025 (1.000-1.030)
[2025-02-28 03:37] LABS: Bacteria Urine Few; RBC Urine 0-2 (0-2); Squamous Epithelial Cell Urine Few (None-Few); WBC Urine 0-2 (0-5)
[2025-02-28 03:38] LABS: Mucus Urine Moderate
[2025-02-28] MEDS: LACTATED RINGERS 1000 ML 1,000 ML IV (04:32)
[2025-02-28] MEDS: PROCHLORPERAZINE 5 MG/ML VIAL 10 MG IV (04:32)
--- NOTE | 2025-02-28 04:40 | W.PM.THH&P_ITS ---
Telehealth- H&P: HPI History of Present Illness Date Seen: 02/28/25 Chief complaint: throwing up 3 days Narrative: Zainab Felipe is seen as an Interactive Telehealth visit. Zainab Felipe is a 49 year old female with no significant history presents with abdominal pain, nausea/vomiting. 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 Since her arrival she has suffered from multiple episodes of nausea, vomiting, and abdominal pain (bilateral lower quadrant and radiates to LUQ). This episode started on Thursday or two days prior to admission. Patient started with abdominal pain and soon developed nausea, vomiting. Emesis consists of food that was eaten and dark green bile. She also suffers from constipation. Due to decreased po intake, patient has lost 10 pounds in the past 2 months. She stopped smoking marijuana over the last month.. she denies ETOH use. Of note, she underwent an evaluation by [facility] and is scheduled for both a colonoscopy and endoscopy on March 02. no fever +chills +dizziness with position changes +decreased uop no chest pain, shortness of breath, diarrhea, melena, hematuria, hematochezia no changes in meds Review of Systems Status of ROS: Reports: 10 or more systems reviewed and unremarkable except as noted in History and below PFSH PFS Social History Smoking Status: Current every day smoker Do you use any of these nicotine containing products: E-Cigarettes Second hand tobacco smoke exposure: No How often do you have a drink containing alcohol: never AUDIT-C Alcohol total score: 0 Non-prescribed substance use: marijuana (any form) Meds Home Medications and Allergies Home Medications ?Medication ?Instructions ?Recorded ?Confirmed ?Type No Known Home Medications 02/28/2502/06 History Allergies Allergy/AdvReac Type Severity Reaction Status Date / Time No Known Drug Allergies Allergy Verified 02/28/25 00:10 Exam Narrative Exam Narrative: Physical Exam GENERAL: ?vital signs reviewed, well developed and nourished, in no distress HEENT: pupils are equal round and reactive to light, extraocular movements are grossly within normal limits and oral mucosa is moist. NECK: Supple without lymphadenopathy or thyromegaly according to nursing staff examination observation HEART: Regular rate and rhythm without any rubs, murmurs, or gallops. LUNGS: Clear to auscultation bilaterally with good air movement throughout ABDOMEN: Observation from nurse assisted exam, abdomen appears soft, bilateral lower quadrant abdominal pain; and nondistended with Positive bowel sounds noted. EXTREMITIES: Strength and sensation is observed to be grossly within normal limits in the upper and lower extremities.? No focal strength deficit is observed. SKIN:? Observed warm and dry with color normal Const Vital Signs, click to edit/add: Vital Signs - 24 hr 02/28/25 00:06 02/28/25 03:28 Temperature 98.1 F Pulse Rate [Pulse Oximeter] 99 86 Respiratory Rate 18 16 Blood Pressure [Right Upper Arm] 142/90 H 148/89 H Pulse Oximetry 99 98 Oxygen Delivery Method Room Air Room Air Hospitalist - H&P: Result Labs Labs: Short CBC 02/28/25 Range/Units 01:10 WBC 10.96 (4.50-11.00) K/uL Hgb 14.2 (12.0-16.0) gm/dL Hct 42.0 (33.0-51.0) % Plt Count 393 (140-440) K/uL BMP 02/28/25 01:10 Sodium 135 Potassium 3.5 L Chloride 103 Carbon Dioxide 18 L BUN 11 Creatinine 0.6 Glucose 108 Calcium 9.6 Liver Function 02/28/25 Range/Units 01:10 Total Bilirubin 1.4 (0.1-1.5) mg/dL AST 26 (12-35) U/L ALT 21 (4-35) U/L Alkaline Phosphatase 70 (40-150) U/L Albumin 4.6 (3.3-5.0) g/dL Urine 02/28/25 Range/Units 03:20 Urine Color Yellow (Yellow) Urine Appearance Cloudy A (Clear) Urine pH 6.0 (5.0-8.5) Ur Specific [place] 1.025 (1.000-1.030) Urine Protein 1+ A (Negative) Urine Glucose (UA) Negative (Negative) Assessment and Plan Assessment and plan (1) Nausea & vomiting: Status: Acute (2) Abdominal pain: Status: Acute Plan 49y/o F presents with recurrent episodes of abdominal pain, nausea and vomiting. Most of these episodes resulted in ED visits. While in the ED this evening, patient had continued pain, nausea/vomiting with minimal improvement. Fortunately, by the time patient reached the floor she started to feel better. Etiology of her abdominal pain, nausea, vomiting could be cyclical vomiting? vs abdominal migraine? vs IBS vs unknown. Unlikely related to cannabis as patient has stopped taking marijuana and continues to have symptoms. --treat as thought patient has abdominal migraine with toradol, compazine, benadryl and IVF --check for prolonged QT; per discussion with ED staff who had records, patient could not take zofran due to prolonged QT history. Will obtain an EKG --clear liquid diet, advance diet as tolerated Full code SCD Total Time Spent Total Time Spent: camera time 15 minutes Telehealth: Statement Statement Telehealth Visit: Today's History and Physical is provided via interactive telehealth by Melissa Latham MD.? Patient is located at [facility].? Provider is located at [facility].? Nursing staff assisted with the patient's exam. The visit being done today meets criteria for a telehealth visit and the patient or patient?s parent/guardian is aware the visit is a telehealth visit.
[2025-02-28 06:01] VITALS: BP 120/71; PULSE 69; RESP 16; TEMP 36.8; O2SAT 96
[2025-02-28 07:00] VITALS: BP 157/82; PULSE 91; RESP 16; TEMP 36.8; O2SAT 97
[2025-02-28] MEDS: OMEPRAZOLE 20 MG CAPSULE DR 40 MG PO (07:51)
[2025-02-28] MEDS: POTASSIUM CHLORIDE 10 MEQ/100 ML PIGGYBACK 100 MEQ IVPB (07:52)
[2025-02-28] MEDS: LACTATED RINGERS 1000 ML 1,000 ML 100 ML IV (07:52)
[2025-02-28 11:00] VITALS: BP 126/83; PULSE 77; RESP 18; TEMP 36.7; O2SAT 100
--- NOTE | 2025-02-28 13:39 | P.DS_ITS ---
DS: Providers Provider Time Seen by Provider: 12:15 Date Seen: 02/28/25 Date of admission: 02/28/25 06:05 Primary care physician: Not a Local Provider Admitting Clinician: Debbie Linda MD Attending Physician on discharge: Molly Mosley MD DS: Diagnosis Discharge Diagnosis (1) Abdominal pain: Status: Resolved (2) Nausea & vomiting: Status: Resolved (3) Hypokalemia: Status: Acute Problem details: Mild, treated with IV KCl in ER. (4) Constipation: Status: Acute Problem details: I spoke with patient about water, fiber, senna, colace, Miralax, and enemas and recommended she establish with a PCP to help her manage this. She mentioned that apples gave her diarrhea, and I noted she could try eating parts of an apple to titrate to effect so that she has good, soft daily BMs. 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 She actually lives in [place], but does not spend much time there and does not have a primary care provider. 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 She takes no medications on a regular basis as an outpatient. She has no neck medical conditions. Sometime in January she started having bouts of abdominal pain associated with intractable nausea and vomiting. She has been seen in the emergency department at [place] 2 or 3 times without a clear diagnosis. She had labs and a CT scan of her abdomen (see below) there that she tells me was unremarkable. Due to a prolonged QT she was given a prescription for Compazine suppositories. When she started having abdominal pain, nausea, and vomiting 2 days ago, she used 1 of the Compazine suppositories, but it was not helpful. She has not had a bowel movement since last . She denies diarrhea, red blood per rectum, or melena. She has not had any febrile illnesses. There is no hematemesis. She tends to be constipated and will often go an entire week without a bowel movement. She recalls having a similar problem about 2 years ago for which she had several ER visits for similar symptoms. She was told she was constipated and given instructions to do Miralax and an enema at home. After completing that, her symptoms resolved. She has not tried that regimen this time. Although her abdominal pain is typically generalized, she did feel little more in the left lower quadrant this time. She denies any dysuria, malodorous urine, urinary frequency, or suprapubic pain. She has had a hysterectomy, but does still have her ovaries. She has had no other imaging than the CT abdomen and pelvis. She saw [facility] recently and was scheduled for an EGD and colonoscopy better to be performed on March 02. She is only drink clears since Thursday and is supposed to start clears today in preparation for her EGD. She notes that she has not yet picked up the medications for the prep. She does have some friends in the area who are willing to drive her for her colonoscopy. Per Dr. Zuniga's ER note from earlier today, he has a nice timeline: Per [facility] care link she was in the [place] ER on 01/31/2025 for nausea and vomiting with 3 days of left-sided abdominal pain. CT scan showed IMPRESSION: 1. Questionable mild wall thickening of segments of transverse colon which may be exaggerated by underdistention, however clinical correlation recommended to exclude mild colitis. 2. Ground-glass opacity of the right middle lobe likely reflecting infectious/inflammatory process. Further characterization with dedicated CT chest can be considered as clinically warranted. 3. Trace fluid within the distal esophagus. Correlate for reflux. 4. Small volume pelvic ascites, nonspecific. She was treated supportively. Discharged. Seen again in the ER on 02/01. Treated with fluids, morphine, Zofran. Discharge. Had a return visit to the ER on 02/01 for recurring symptoms. Treated with Zofran, Reglan, Benadryl, Dilaudid. X-ray of her abdomen was ?unremarkable. ? 02/16-ER visit for vomiting/lightheadedness. Labs showed sodium 139, potassium 4.4, bicarb low at 18, anion gap 16, calcium 9.7, glucose 132, BUN 10,, creatinine 0.63, lipase normal at 21, total bili normal at 0.6, alk-phos 54, ALT 13, AST 21, test negative, white blood cell count 10.6, hemoglobin 13.8, platelet count 340, magnesium 1.9. She was treated with 2 doses of droperidol, 2 L of fluid, and IV Compazine. EKG showed QT prolongation. Her provider recommended against further Zofran. 02/18, return visit to the [place] ER for recurring symptoms. Workup included drug screen that was negative, CBC with a white count of 10.7, urinalysis showing 0-2 WBC, 0-2 RBC, but many bacteria and many squamous epithelial cells. Positive nitrite. Lipase was normal. LFTs normal. EKG showed normal QT intervals with a QTC of 434 and a QTC of 471. Was treated with IV Rocephin for possible UTI. Treated with antiemetics and was able to discharg e Had a repeat visit again on 02/18 Today she was admitted for obs for intractable nausea. She is feeling much better now. Abdominal pain and nausea have improved. She is tolerating clears. She will be on a clear liquid diet until colonoscopy and EGD thrusday. She is discharged in improved condition. She will start clears today and prep for colonoscopy and EGD as prescribed. Time Spent with Patient Time attestation: Total time spent providing and/or coordinating discharge services: Today I spent 37 minutes seeing and discharging the patient, reviewing [facility] and [facility] notes/diagnostics/labs, discussing the care plan with our care team that includes social work, PT/OT, pharmacy, RT, correction and documenting my impressions and plan in the medical record. Exam Narrative: Exam Narrative: General: No acute distress. Awake, alert, oriented x3. No pallor. No jaundice. Oropharynx: Clear. Mucous membranes moist. Cardiovascular: Regular rate and rhythm. No murmurs, gallops, or rubs. Respiratory: Clear to auscultation bilaterally. No wheezes or crackles. Abdomen: Several well-healed surgical scars, including a midline incision from the umbilicus to the suprapubic area and a low abdominal scar. Bowel sounds present. Soft, nondistended, nontender. Extremities: No lower extremity edema. Const: Vital Signs, click to edit/add: Vital Signs - 24 hr 02/28/25 00:06 02/28/25 03:28 02/28/25 06:01 Temperature 98.1 F 98.3 F Pulse Rate [Left P ulse Oximeter] 69 Pulse Rate [Pulse Oximeter] 99 86 Respiratory Rate 18 16 16 Blood Pressure [Ri ght Arm] 120/71 Blood Pressure [Ri ght Upper Arm] 142/90 H 148/89 H Pulse Oximetry 99 98 96 Oxygen Delivery Me thod Room Air Room Air Room Air 02/28/25 06:01 02/28/25 07:00 Temperature 98.2 F Pulse Rate [Left P ulse Oximeter] 91 Pulse Rate [Pulse Oximeter] Respiratory Rate 16 16 Blood Pressure [Ri ght Arm] 157/82 H Blood Pressure [Ri ght Upper Arm] Pulse Oximetry 96 97 Oxygen Delivery Me thod Room Air DS: Data Data Completed and Pending Labs on day of discharge: Labs from last 24 hours 02/28/25 02/28/25 03:20 01:10 WBC 10.96 RBC 4.54 Hgb 14.2 Hct 42.0 MCV 93 MCH 31 MCHC 34 RDW Coeff of Nenita 12.7 Plt Count 393 Neut % (Auto) 65.9 Lymph % (Auto) 26.7 [place] % (Auto) 6.5 Eos % (Auto) 0.1 Baso % (Auto) 0.5 Neut # (Auto) 7.23 H Lymph # (Auto) 2.[address] [place] # (Auto) 0.70 Eos # (Auto) 0.01 Baso # (Auto) 0.05 Abs Immat Gran (auto) 0.03 Imm/Tot Granulo (auto) 0.3 Sodium 135 Potassium 3.5 L Chloride 103 Carbon Dioxide 18 L Anion Gap 14 BUN 11 Creatinine 0.6 Estimated Creat Clear 121.14 Estimated GFR 111 Glucose 108 Calcium 9.6 Total Bilirubin 1.4 AST 26 ALT 21 Alkaline Phosphatase 70 Total Protein 7.9 Albumin 4.6 Lipase 87 Urine Color Yellow Urine Appearance Cloudy A Urine pH 6.0 Ur Specific [place] 1.025 Urine Protein 1+ A Urine Glucose (UA) Negative Urine Ketones 4+ A Urine Blood Negative Urine Nitrite Negative Urine Bilirubin 1+ A Urine Urobilinogen 4.0 A Ur Leukocyte Esterase Negative Urine RBC 0-2 Urine WBC 0-2 Ur Squamous Epith Cells Few Urine Bacteria Few A Urine Mucus Moderate A Urine HCG, Qual Cancelled Preliminary micro results at discharge 02/28/25 03:20 Urine Culture - Preliminary Urine,Clean Catch Culture in Progress Discharge Plan Discharge Disposition: Home, Self-Care Date of Admission: 02/28/25 06:05 Attending Provider on Discharge: Molly Mosley Primary Care Provider: Provider,Not a Local Condition: Improved Anticipated Discharge Date/Time: 02/28/25 13:40 Discharge Medications: No Action No Known Home Medications Discharge Orders: Discharge Order (Routine); Ordered 02/28/25 Ordered By: Molly Mosley Patient Education: Constipation (DC) Activity Level: No Restrictions Discharge Diet: Regular and Other Diet Detail: follow [facility] orders for colonoscopy prep Follow Up Appointments: Provider,Not a Local [Primary Care Provider, Family Practice] Forms: [facility] Info Instructions
--- NOTE | 2025-02-28 15:48 | PC.NURSE ---
The patient was discharged, the patient was instructed to follow up with [facility] and is scheduled to have a colonoscopy and EGD on . Clear liquids only. The patients nausea is under control, and she is tolerating a clear liquid diet. All questions were answered. Ambulated off the unit. Clarisse REYNOSO BSN
== END 2025-02-28 14:45 | disposition home or self-care (01) ==
LOC: ED 03:46 → MEDSURG 05:34 → ED 09:28 → MEDSURG 09:29
PROVIDERS: Admitting Provider Internal Medicine; Emergency Provider Emergency Medicine; Visit Provider Family Medicine
DX: R10.84 Generalized abdominal pain (principal); R11.2 Nausea with vomiting, unspecified; K59.00 Constipation, unspecified; E87.6 Hypokalemia; R94.31 Abnormal electrocardiogram [ECG] [EKG]; F17.290 Nicotine dependence, other tobacco product, uncomplicated
CPT/HCPCS: 36415; 80053; 81001; 81025; 83690; 85025; 87086; 93005; 96361; 96374; 96375; 96376; 99283; 99284; 99285; A9270; G0378; J0780; J1200; J1790; J1885; J2765; J3480; J7030; J7120